=== PATIENT | male | born 1965 | race Caucasian/White ===

== ENCOUNTER 2019-11-07 23:40 | Inpatient (IN) | payer SELFPAY ==
[~2019-11-07] VITALS: Ht 165.1 cm; Wt 43.2 kg
--- NOTE | 2019-11-07 23:51 | PHYS DOC ---
Past Medical History Past Medical History: Kidney Stone Additional Past Medical Histor: pneumothorax Past Surgical History: No Surgical History Smoking Status: Current Every Day Smoker Alcohol Use: None Drug Use: None General Adult HPI: HPI: The history was obtained from the patient and EMS. Patient is a 54-year-old mal e with PMH on oxygen dependent COPD who presents with a chief complaint of shortness of breath. Patient states he has had progressive shortness of breath for the past couple of days. Notes a dry cough. States this feels similar to previous COPD exacerbations. Has been trying his inhaler at home with minimal relief. States he is from [place] and has not established with a prosthetic assistant or primary care doctor. States he moved here several weeks ago. Denies chest pain. States he last smoked 5 weeks ago. Notes he has been tested multiple times for coronavirus in the past 3 months and they have all been negative. Denies syncope. Denies BiPAP requirement at home. Denies any history of ventilator requirement. Denies recent antibiotics or steroids. No other complaints. Review of Systems: Review of Systems: Constitutional: Denies fever or chills. [] Eyes: Denies change in visual acuity. [] HENT: Denies nasal congestion or sore throat. [] Respiratory: Positive shortness of breath and cough Cardiovascular: Denies chest pain or edema. [] GI: Denies abdominal pain, nausea, vomiting, bloody stools or diarrhea. [] : Denies dysuria. [] Musculoskeletal: Denies back pain or joint pain. [] Integument: Denies rash. [] Neurologic: Denies headache, focal weakness or sensory changes. [] Endocrine: Denies polyuria or polydipsia. [] Lymphatic: Denies swollen glands. [] Psychiatric: Denies depression or anxiety. [] Heart Score: Risk Factors: Risk Factors: DM, Current or recent (<one month) smoker, HTN, HLP, family history of CAD, obesity. Risk Scores: Score 0 - 3: 2.5% MACE over next 6 weeks - Discharge Home Score 4 - 6: 20.3% MACE over next 6 weeks - Admit for Clinical Observation Score 7 - 10: 72.7% MACE over next 6 weeks - Early Invasive Strategies Allergies: Allergies: Allergies Coded Allergies Type Severity Reaction Last Updated Verified No Known Drug Allergies 09/23/14 No Physical Exam: PE: Constitutional: Well developed, well nourished, no acute distress, non-toxic appearance. [] HENT: Normocephalic, atraumatic, bilateral external ears normal, oropharynx moist, no oral exudates, nose normal. [] Eyes: PERRLA, EOMI, conjunctiva normal, no discharge. [] Neck: Normal range of motion, no tenderness, supple, no stridor. [] Cardiovascular:Heart rate regular rhythm, no murmur [] Lungs & Thorax: Bilateral expiratory wheezes noted in the bases. Tachypnea. Accessory muscle usage noted. 90% on room air. Abdomen: Bowel sounds normal, soft, no tenderness, no masses, no pulsatile masses. [] Skin: Warm, dry, no erythema, no rash. [] Back: No tenderness, no CVA tenderness. [] Extremities: No tenderness, no cyanosis, no clubbing, ROM intact, no edema. [] Neurologic: Alert and oriented X 3, normal motor function, normal sensory function, no focal deficits noted. [] Psychologic: Affect normal, judgement normal, mood normal. [] Current Patient Data: Labs: Laboratory Tests Test 11/08/19 00:12 White Blood Count 12.9 x10^3/uL Red Blood Count 4.21 x10^6/uL Hemoglobin 14.2 g/dL Hematocrit 42.1 % Mean Corpuscular Volume 100 fL Mean Corpuscular Hemoglobin 34 pg Mean Corpuscular Hemoglobin Concent 34 g/dL Red Cell Distribution Width 13.5 % Platelet Count 188 x10^3/uL Neutrophils (%) (Auto) 72 % Lymphocytes (%) (Auto) 13 % Monocytes (%) (Auto) 8 % Eosinophils (%) (Auto) 6 % Basophils (%) (Auto) 1 % Neutrophils # (Auto) 9.3 x10^3/uL Lymphocytes # (Auto) 1.6 x10^3/uL Monocytes # (Auto) 1.1 x10^3/uL Eosinophils # (Auto) 0.8 x10^3/uL Basophils # (Auto) 0.1 x10^3/uL Prothrombin Time 13.5 SEC Prothromb Time International Ratio 1.1 Sodium Level 143 mmol/L Potassium Level 4.0 mmol/L Chloride Level 109 mmol/L Carbon Dioxide Level 29 mmol/L Anion Gap 5 Blood Urea Nitrogen 11 mg/dL Creatinine 0.7 mg/dL Estimated GFR (Cockcroft-Gault) 117.1 BUN/Creatinine Ratio 16 Glucose Level 108 mg/dL Lactic Acid Level 1.2 mmol/L Calcium Level 8.9 mg/dL Total Bilirubin 0.2 mg/dL Aspartate Amino Transf (AST/SGOT) 15 U/L Alanine Aminotransferase (ALT/SGPT) 21 U/L Alkaline Phosphatase 101 U/L Troponin I Quantitative < 0.017 ng/mL HJ-Xow-G-Type Natriuretic Peptide 137 pg/mL Total Protein 6.8 g/dL Albumin 3.9 g/dL Albumin/Globulin Ratio 1.3 Current Medications Medications (Trade) Dose Ordered Sig/Gonsalo Route PRN Reason Start Time Stop Time Status Last Admin Dose Admin Albuterol/ Ipratropium (Duoneb) 9 ml 1X ONCE NEB 11/08/19 00:00 11/08/19 00:01 DC 11/08/19 00:18 Methylprednisolone Sodium Succinate (SOLU-Medrol 125MG VIAL) 125 mg 1X ONCE IV 11/08/19 00:00 11/08/19 00:01 DC 11/08/19 00:49 Sodium Chloride 1,000 ml @ 1,000 mls/hr 1X ONCE IV 11/08/19 00:00 11/08/19 00:59 DC 11/08/19 00:49 Vital Signs: Vital Signs Date Time Temp Pulse Resp B/P (MAP) Pulse Ox O2 Delivery O2 Flow Rate FiO2 11/07/19 23:40 98.5 104 24 140/79 (99) 5 Room Air 98.5 Vital Signs Date Time Temp Pulse Resp B/P (MAP) Pulse Ox O2 Delivery O2 Flow Rate FiO2 11/08/19 00:20 96 Room Air 11/07/19 23:40 98.5 104 24 140/79 (99) 98.5 EKG: EKG: EKG consistent with sinus tachycardia. Ventricular rate of 104 bpm. [place] normal. Bilateral atrial margin noted. No acute ST segment elevation appreciated. [] Radiology/Procedures: Radiology/Procedures: [facility] [address] [place] [address] IMAGING REPORT Signed PATIENT: JOSE PAULINO ACCOUNT: [id number] : 1965 LOCATION: ER AGE: 54 SEX: M EXAM STATUS: REG ER ORD. PHYSICIAN: GISSELL ELIZONDO DO REASON: SHORT OF AIR PROCEDURE: CHEST AP ONLY INDICATION: Reason: SHORT OF AIR / Spl. Instructions: / History: COMPARISON: September 2014 FINDINGS: Single view of chest obtained. Disorganized pulmonary markings bilaterally with lucency at lung apices. Postoperative changes left upper lung. Cardiac silhouette is not enlarged. There are some calcifications adjacent to the left humerus which could be from calcific tendinosis or old avulsion. IMPRESSION: * Hyperexpanded lungs with disorganized pulmonary markings which can be seen with causes such as emphysema. A well-defined focal infiltrate is not seen. Electronically signed by: Monik Hilario MD (11/08/2019 2:10 AM) [id number] DICTATED and SIGNED BY: MONIK HILARIO MD DATE: 11/08/19209 [] Course & Med Decision Making: Course & Med Decision Making Pertinent Labs and Imaging studies reviewed. (See chart for details) [] Patient is a 54-year-old male who presents with chief complaint of shortness of breath. Initial examination he does show retractions with wheezes bilaterally. He did refuse BiPAP initially requesting DuoNeb breathing treatments. These were administered and did show improvement of his breathing status. He still has some mild wheezing and tachypnea appreciated. No indication for BiPAP. Overall no indication for blood gas. Basic labs were obtained were grossly unremarkable. He was given IV Solu-Medrol. IV fluids administered. COVID testing obtained and pending. Antibiotics were deferred as the patient does not report any increase in sputum production. Chest x-ray nonfocal. I do feel he require hospitalization for COPD exacerbation. COVID-19 CRITERIA: The patient was evaluated during the global COVID-19 pandemic, and that diagnosis was suspected/considered upon their initial presentation. Their evaluation, treatment and testing was consistent with current guidelines for patients who present with complaints or symptoms that may be related to COVID-19. Dragon Disclaimer: Dragon Disclaimer: This electronic medical record was generated, in whole or in part, using a voice recognition dictation system. Departure Departure Impression: Primary Impression: COPD exacerbation Disposition: ADMITTED INPATIENT Condition: STABLE Referrals: NO PCP (PCP) Justicifation of Admission Dx: Justifications for Admission: Justification of Admission Dx: Yes Comments: COPD exacerbation GISSELL ELIZONDO DO Nov 07, 2019 23:51
[2019-11-08] MEDS ORDERED: IPRATRPIUM/ALBUTEROL 0.5/2.5MG 3 ML NEBU. NEB ONE
[2019-11-08] MEDS ORDERED: IV NORMAL SALINE 1000ML BAG 1,000 ML IV ONE
[2019-11-08] MEDS ORDERED: methylPREDNISolone SOD SUCC PF 125 MG/2 ML VIAL. IV ONE
[2019-11-08 00:26] LABS: BASO # 0.1 x10^3/uL (0.0-0.2); BASO % 1 % (0-3); EOS # 0.8 x10^3/uL (0.0-0.7); EOS % 6 % (0-3); HEMATOCRIT 42.1 % (39.0-53.0); HEMOGLOBIN 14.2 g/dL (13.0-17.5); LYMPH # 1.6 x10^3/uL (1.0-4.8); LYMPH % 13 % (24-48); MEAN CORPUSCULAR HEMOGLOBIN 34 pg (25-35); MEAN CORPUSCULAR HGB CONC 34 g/dL (31-37); MEAN CORPUSCULAR VOLUME 100 fL (79-100); MONO # 1.1 x10^3/uL (0.0-1.1); MONO % 8 % (0-9); NEUT # 9.3 x10^3/uL (1.8-7.7); NEUT % 72 % (31-73); PLATELET COUNT 188 x10^3/uL (140-400); RED BLOOD COUNT 4.21 x10^6/uL (4.30-5.70); RED CELL DISTRIBUTION WIDTH 13.5 % (11.5-14.5); WHITE BLOOD COUNT 12.9 x10^3/uL (4.0-11.0)
[2019-11-08 00:36] LABS: CALCIUM 8.9 mg/dL (8.5-10.1); CREATININE 0.7 mg/dL (0.7-1.3); GFR 117.1
[2019-11-08 00:38] LABS: PROTHROMBIN TIME PATIENT 13.5 SEC (11.7-14.0)
[2019-11-08 00:42] LABS: ALBUMIN 3.9 g/dL (3.4-5.0); ALBUMIN/GLOBULIN RATIO 1.3 (1.0-1.7); TOTAL BILIRUBIN 0.2 mg/dL (0.2-1.0); TOTAL PROTEIN 6.8 g/dL (6.4-8.2)
[2019-11-08] MEDS ORDERED: ONDANSETRON PF 4 MG/2 ML VIAL. IV PRN (01:45)
--- NOTE | 2019-11-08 02:13 | RAD ---
INDICATION: Reason: SHORT OF AIR / Spl. Instructions: / History: COMPARISON: September 2014 FINDINGS: Single view of chest obtained. Disorganized pulmonary markings bilaterally with lucency at lung apices. Postoperative changes left upper lung. Cardiac silhouette is not enlarged. There are some calcifications adjacent to the left humerus which could be from calcific tendinosis or old avulsion. IMPRESSION: * Hyperexpanded lungs with disorganized pulmonary markings which can be seen with causes such as emphysema. A well-defined focal infiltrate is not seen. Electronically signed by: Adrian Hilario MD (11/08/2019 2:10 AM) [id number]
[2019-11-08 03:59] VITALS: BP 136/81
--- NOTE | 2019-11-08 05:45 | EKG ---
[facility] [address] [place] [address] Test Date: 2019-11-08 Test Time: 00:04:18 Pat Name: JOSE PAULINO Department: Room: Gender: Location Man: : 1965 Requested By: GISSELL ELIZONDO Order Number: [id number] Reading MD: Measurements Intervals [place] Rate: 104 P: 77 WI: 138 QRS: 60 QRSD: 90 T: 56 QT: 354 QTc: 472 Interpretive Statements SINUS TACHYCARDIA BIATRIAL ENLARGEMENT ABNORMAL ECG RI6.02 No previous ECG available for comparison
[2019-11-08 07:00] VITALS: BP 136/81
--- NOTE | 2019-11-08 08:01 | PDOC1 ---
History and Physical Date of Admission Date of Admission DATE: 11/08/19 TIME: 08:01 Identification/Chief Complaint Chief Complaint Shortness of breath Source Source: Patient History of Present Illness History of Present Illness Mr Williamson is a 54-year-old male who smoked for 37 years with PMHx nephrolithiasis, spontaneous pneumothorax. COPD who comes to ED c/o shortness of breath. He has chronic exertional dyspnea since August. He has moved recently from [place] 3 days prior to ED presentation and wants to settle in [place] He quit tobacco 5 weeks ago. Patient states he has had progressive shortness of breath for the past couple of days. Notes a dry cough. States this feels similar to previous COPD exacerbations. Has been trying his inhaler at home with minimal relief. States he is from [place] and has not established with a reading instructor or primary care doctor. States he moved here several weeks ago. Denies chest pain. States he last smoked 5 weeks ago. Notes he has been tested multiple times for coronavirus in the past 3 months and they have all been negative. Denies syncope. Denies BiPAP requirement at home. Denies any history of ventilator requirement. Denies recent antibiotics or steroids. No other complaints. EKG consistent with sinus tachycardia. Ventricular rate of 104 bpm. [place] normal. Bilateral atrial margin noted. No acute ST segment elevation appreciated. CXR with severe bullous lung disease and emphysema and some prominent lung markings. BUN and creatinine 11 and 0.7. INR 1.1. White cell count 12.9. Tested for COVID 19 in ED and admitted for further care. Past Medical History Pulmonary: COPD Past Surgical History Past Surgical History: No pertinent history Family History Family History: High Cholestrol, Hypertension Social History Smoke: 1 pack per day ALCOHOL: none Drugs: None Current Problem List Problem List Problems Medical Problems: (1) COPD exacerbation Status: Acute Current Medications Current Medications Current Medications Albuterol/ Ipratropium (Duoneb) 9 ml 1X ONCE NEB Last administered on 11/08/19at 00:18; Start 11/08/19 at 00:00; Stop 11/08/19 at 00:01; Status DC Methylprednisolone Sodium Succinate (SOLU-Medrol 125MG VIAL) 125 mg 1X ONCE IV Last administered on 11/08/19at 00:49; Start 11/08/19 at 00:00; Stop 11/08/19 at 00:01; Status DC Sodium Chloride 1,000 ml @ 1,000 mls/hr 1X ONCE IV Last administered on 11/08/19at 00:49; Start 11/08/19 at 00:00; Stop 11/08/19 at 00:59; Status DC Ondansetron HCl (Zofran) 4 mg PRN Q8HRS PRN IV NAUSEA/VOMITING; Start 11/08/19 at 01:45; Stop 11/09/19 at 01:44 Allergies Allergies: Coded Allergies: No Known Drug Allergies (Unverified , 09/23/14) ROS General: YES: Fatigue, Malaise; No: Chills, Night Sweats, Appetite, Other PSYCHOLOGICAL ROS: YES: Anxiety; No: Behavioral Disorder, Concentration difficultie, Decreased libido, Depression, Disorientation, Hallucinations, Hostility, Irritablity, Memory difficulties, Mood Swings, Obsessive thoughts, Physical abuse, Sexual abuse, Sleep disturbances, Suicidal ideation, Other Eyes: No Blurry vision, No Decreased vision, No Double vision, No Dry eyes, No Excessive tearing, No Eye Pain, No Itchy Eyes, No Loss of vision, No Photophobia, No Scotomata, No Uses contacts, No Uses glasses, No Other HEENT: No: Heacaches, Visual Changes, Hearing change, Nasal congestion, Nasal discharge, Oral lesions, Sinus pain, Sore Throat, Epistaxis, Sneezing, Snoring, Tinnitus, Vertigo, Vocal changes, Other ALLERGY AND IMMUNOLOGY: YES: Itchy/Watery Eyes, Nasal Congestion, Post Nasal Drip; No: Hives, Insect Bite Sensitivity, Seasonal Allergies, Other Hematological and Lymphatic: No: Bleeding Problems, Blood Clots, Blood Transfusions, Brusing, Night Sweats, Pallor, Swollen Lymph Nodes, Other ENDOCRINE: No: Breast Changes, Galactorrhea, Hair Pattern Changes, Hot Flashes, Malaise/lethargy, Mood Swings, Palpitations, Polydipsia/polyuria, Skin Changes, Temperature Intolerance, Unexpected Weight Changes, Other Breast: No New/Changing Breast Lumps, No Nipple changes, No Nipple discharge, No Other Respiratory: YES: Cough, Shortness of breath, SOB with excertion; No: Hemoptysis, Orthopnea, Pleuritic Pain, Sputum Changes, Stridor, Tachypnea, Wheezing, Other Cardiovascular: No Chest Pain, No Palpitations, No Orthopnea, No Paroxysmal Noc. Dyspnea, No Edema, No Lt Headedness, No Other Gastrointestinal: No Nausea, No Vomiting, No Abdominal Pain, No Diarrhea, No Constipation, No Melena, No Hematochezia, No Other Genitourinary: No Dysuria, No Frequency, No Incontinence, No Hematuria, No Retention, No Discharge, No Urgency, No Pain, No Flank Pain, No Other, No , No , No , No , No , No , No Musculoskeletal: No Gait Disturbance, No Joint Pain, No Joint Stiffness, No Joint Swelling, No Muscle Pain, No Muscular Weakness, No Pain In:, No Swelling In:, No Other Neurological: No Behavorial Changes, No Bowel/Bladder ControlChng, No Confusion, No Dizziness, No Gait Disturbance, No Headaches, No Impaired Coord/balance, No Memory Loss, No Numbness/Tingling, No Seizures, No Speech Problems, No Tremors, No Visual Changes, No Weakness, No Other Skin: No Dry Skin, No Eczema, No Hair Changes, No Lumps, No Mole Changes, No Mottling, No Nail Changes, No Pruritus, No Rash, No Skin Lesion Changes, No Other, No Acne Physical Exam General: Alert, Oriented X3, Cooperative, mild distress HEENT: Atraumatic, PERRLA, EOMI, Mucous membr. moist/pink Lungs: Other (Wheezes) Heart: S1S2, RRR, no thrills, no rubs, no gallops, no murmurs Abdomen: Normal bowel sounds, Soft, No tenderness, No hepatosplenomegaly, No masses Rectal Exam: not examined Extremities: No clubbing, No cyanosis, No edema, Normal pulses, No t enderness/swelling Skin: No rashes, No breakdown, No significant lesion Neuro: Normal gait, Normal speech, Strength at 5/5 X4 ext, Normal tone, Sensation intact, Cranial nerves 3-12 NL, Reflexes 2+ Psych/Mental Status: Mental status NL, Mood NL Vitals Vitals Vital Signs Date Time Temp Pulse Resp B/P (MAP) Pulse Ox O2 Delivery O2 Flow Rate FiO2 11/08/19 03:59 97.0 105 25 136/81 (99) 96 Room Air 97.0 Labs Labs Laboratory Tests Test 11/08/19 00:12 White Blood Count 12.9 x10^3/uL (4.0-11.0) Red Blood Count 4.21 x10^6/uL (4.30-5.70) Hemoglobin 14.2 g/dL (13.0-17.5) Hematocrit 42.1 % (39.0-53.0) Mean Corpuscular Volume 100 fL (79-100) Mean Corpuscular Hemoglobin 34 pg (25-35) Mean Corpuscular Hemoglobin Concent 34 g/dL (31-37) Red Cell Distribution Width 13.5 % (11.5-14.5) Platelet Count 188 x10^3/uL (140-400) Neutrophils (%) (Auto) 72 % (31-73) Lymphocytes (%) (Auto) 13 % (24-48) Monocytes (%) (Auto) 8 % (0-9) Eosinophils (%) (Auto) 6 % (0-3) Basophils (%) (Auto) 1 % (0-3) Neutrophils # (Auto) 9.3 x10^3/uL (1.8-7.7) Lymphocytes # (Auto) 1.6 x10^3/uL (1.0-4.8) Monocytes # (Auto) 1.1 x10^3/uL (0.0-1.1) Eosinophils # (Auto) 0.8 x10^3/uL (0.0-0.7) Basophils # (Auto) 0.1 x10^3/uL (0.0-0.2) Prothrombin Time 13.5 SEC (11.7-14.0) Prothromb Time International Ratio 1.1 (0.8-1.1) Sodium Level 143 mmol/L (136-145) Potassium Level 4.0 mmol/L (3.5-5.1) Chloride Level 109 mmol/L (98-107) Carbon Dioxide Level 29 mmol/L (21-32) Anion Gap 5 (6-14) Blood Urea Nitrogen 11 mg/dL (8-26) Creatinine 0.7 mg/dL (0.7-1.3) Estimated GFR (Cockcroft-Gault) 117.1 BUN/Creatinine Ratio 16 (6-20) Glucose Level 108 mg/dL (70-99) Lactic Acid Level 1.2 mmol/L (0.4-2.0) Calcium Level 8.9 mg/dL (8.5-10.1) Total Bilirubin 0.2 mg/dL (0.2-1.0) Aspartate Amino Transf (AST/SGOT) 15 U/L (15-37) Alanine Aminotransferase (ALT/SGPT) 21 U/L (16-63) Alkaline Phosphatase 101 U/L (46-116) Troponin I Quantitative < 0.017 ng/mL (0.000-0.055) FM-Evu-W-Type Natriuretic Peptide 137 pg/mL (0-124) Total Protein 6.8 g/dL (6.4-8.2) Albumin 3.9 g/dL (3.4-5.0) Albumin/Globulin Ratio 1.3 (1.0-1.7) Laboratory Tests Test 11/08/19 00:12 White Blood Count 12.9 x10^3/uL (4.0-11.0) Red Blood Count 4.21 x10^6/uL (4.30-5.70) Hemoglobin 14.2 g/dL (13.0-17.5) Hematocrit 42.1 % (39.0-53.0) Mean Corpuscular Volume 100 fL (79-100) Mean Corpuscular Hemoglobin 34 pg (25-35) Mean Corpuscular Hemoglobin Concent 34 g/dL (31-37) Red Cell Distribution Width 13.5 % (11.5-14.5) Platelet Count 188 x10^3/uL (140-400) Neutrophils (%) (Auto) 72 % (31-73) Lymphocytes (%) (Auto) 13 % (24-48) Monocytes (%) (Auto) 8 % (0-9) Eosinophils (%) (Auto) 6 % (0-3) Basophils (%) (Auto) 1 % (0-3) Neutrophils # (Auto) 9.3 x10^3/uL (1.8-7.7) Lymphocytes # (Auto) 1.6 x10^3/uL (1.0-4.8) Monocytes # (Auto) 1.1 x10^3/uL (0.0-1.1) Eosinophils # (Auto) 0.8 x10^3/uL (0.0-0.7) Basophils # (Auto) 0.1 x10^3/uL (0.0-0.2) Prothrombin Time 13.5 SEC (11.7-14.0) Prothromb Time International Ratio 1.1 (0.8-1.1) Sodium Level 143 mmol/L (136-145) Potassium Level 4.0 mmol/L (3.5-5.1) Chloride Level 109 mmol/L (98-107) Carbon Dioxide Level 29 mmol/L (21-32) Anion Gap 5 (6-14) Blood Urea Nitrogen 11 mg/dL (8-26) Creatinine 0.7 mg/dL (0.7-1.3) Estimated GFR (Cockcroft-Gault) 117.1 BUN/Creatinine Ratio 16 (6-20) Glucose Level 108 mg/dL (70-99) Lactic Acid Level 1.2 mmol/L (0.4-2.0) Calcium Level 8.9 mg/dL (8.5-10.1) Total Bilirubin 0.2 mg/dL (0.2-1.0) Aspartate Amino Transf (AST/SGOT) 15 U/L (15-37) Alanine Aminotransferase (ALT/SGPT) 21 U/L (16-63) Alkaline Phosphatase 101 U/L (46-116) Troponin I Quantitative < 0.017 ng/mL (0.000-0.055) XA-Pas-A-Type Natriuretic Peptide 137 pg/mL (0-124) Total Protein 6.8 g/dL (6.4-8.2) Albumin 3.9 g/dL (3.4-5.0) Albumin/Globulin Ratio 1.3 (1.0-1.7) Images Images CXR: Disorganized pulmonary markings bilaterally with lucency at lung apices. Postoperative changes left upper lung. Cardiac silhouette is not enlarged. There are some calcifications adjacent to the left humerus which could be from calcific tendinosis or old avulsion. IMPRESSION: * Hyperexpanded lungs with disorganized pulmonary markings which can be seen with causes such as emphysema. A well-defined focal infiltrate is not seen. VTE Prophylaxis Ordered VTE Prophylaxis Devices: No VTE Pharmacological Prophylaxi: Yes Assessment/Plan Assessment/Plan A/P: Shortness of breath - COPD exacerbation, inhalers, steroids improving Likely end-stage chronic obstructive pulmonary disease - will have outpatient pulm f/u. A noncontrast CT chest to assess for bullous lung disease once COVID is ruled out and recommend alpha-1 antitrypsin level as an outpatient. Abnormal chest x-ray with suspected bullous lung disease and severe emphysema - no clinical pneumonia. Needs PFTs as an outpatient. Leukocytosis - likely from COPD exacerbation Anxiety - likely related to COPD. try buspar FEN - General diet PPX - lovenox FULL CODE Dispo - inpatient await pulm evaluation, will r/o COVID19, 6 minute walk and likely home Justifications for Admission Other Justification ANNE HOOVER MD Nov 08, 2019 08:01
[2019-11-08] MEDS ORDERED: FLUTICASONE/VILANTEROL 200/25 INHALER. INH SCH (09:00)
[2019-11-08 11:00] VITALS: BP 134/74
--- NOTE | 2019-11-08 12:20 | CONS ---
DATE OF CONSULTATION: PULMONARY CONSULTATION ATTENDING PHYSICIAN: Dr. La. REASON FOR CONSULTATION: Dyspnea. HISTORY OF PRESENT ILLNESS: The patient is a 54-year-old male who smoked for 37 years. He has chronic exertional dyspnea since August. He has moved recently from [place] and wants to settle in [place] He quit tobacco 5 weeks ago. The patient does not have any brazer induction. He denies any cough, fever or chills. He has some weight loss. The patient had multiple times been tested for COVID and was reportedly negative. I have reviewed the patient's chest x-ray and it showed evidence of severe bullous lung disease and emphysema and some prominent lung markings. His review of chemistry reveals an elevated bicarbonate 29, suggesting he may have hypercapnia. PAST MEDICAL HISTORY: Significant for renal stones and history of pneumothorax. History of suspected severe emphysema. PAST SURGICAL HISTORY: None. SOCIAL HISTORY: Smoked for 37 years. Quit 5 weeks ago. ALLERGIES: None. MEDICATIONS: Reviewed as listed in the MRAD. REVIEW OF SYSTEMS: Ten-point system obtained as discussed in my history of present illness. PHYSICAL EXAMINATION: VITAL SIGNS: Reviewed. Pulse ox 96% on room air. HEENT: Visual exam done due to COVID-19 pandemia. GENERAL: He is in no obvious respiratory distress. He has a very emphysematous chest wall. EXTREMITIES: With no pitting edema. LABORATORY DATA: Reviewed. BUN and creatinine 11 and 0.7. INR 1.1. White cell count 12.9. IMPRESSION: 1. Chronic exertional dyspnea secondary to suspected end-stage chronic obstructive pulmonary disease. 2. Abnormal chest x-ray with suspected bullous lung disease and severe emphysema. RECOMMENDATIONS: 1. Clinically, low suspicion for COVID. 2. Would recommend doing a noncontrast CT chest to assess for bullous lung disease once COVID is ruled out. 3. We would also recommend alpha-1 antitrypsin level as an outpatient. 4. Bronchodilators. 5. PFTs as an outpatient. 6. He could be discharged. He would benefit from 6-minute walk test to assess further need for oxygen. ELBA MORA MD DR: JB/balbina JOB#: [id number] / [id number]
[2019-11-08 15:00] VITALS: BP 132/76
[2019-11-08] MEDS ORDERED: MONT10TA49 PO (16:01)
[2019-11-08] MEDS ORDERED: IPRA3AMP29 NEB (16:01)
[2019-11-08] MEDS ORDERED: BUSP5TAB PO (16:01)
[2019-11-08] MEDS ORDERED: BUDE0.5A3 NEB (16:01)
[2019-11-08] MEDS ORDERED: PRED20TA PO (16:01)
--- NOTE | 2019-11-08 16:05 | NUR ---
SW following. Spoke with RN and reviewed chart. SW referred for functional decline. SW attempted to call in and talk with pt but there was no answer. Pt COVID pending and on room air. Pt has discharge orders to home self-care. No further SW needs identified.
--- NOTE | 2019-11-08 17:10 | NUR ---
Pt discharged to home with mother. Discharge instructions reviewed. Questions answered.
--- NOTE | 2019-11-10 17:35 | PDOC3 ---
Discharge Summary Visit Information Date of Admission: Nov 08, 2019 Date of Discharge: Nov 08, 2019 Admitting Diagnosis: COPD with exacerbation Final Diagnosis Problems Medical Problems: (1) COPD exacerbation Status: Acute Brief Hospital Course Allergies Allergies Coded Allergies Type Severity Reaction Last Updated Verified No Known Drug Allergies 09/23/14 No Brief Hospital Course Mr Williamson is a 54-year-old male who smoked for 37 years with PMHx nephrolithiasis, spontaneous pneumothorax. COPD who comes to ED c/o shortness of breath. He has chronic exertional dyspnea since August. He has moved recently from [place] 3 days prior to ED presentation and wants to settle in [place] He quit tobacco 5 weeks ago. Patient states he has had progressive shortness of breath for the past couple of days. Notes a dry cough. States this feels similar to previous COPD exacerbations. Has been trying his inhaler at home with minimal relief. States he is from [place] and has not established with a senior sales compensation analyst or primary care doctor. States he moved here several weeks ago. Denies chest pain. States he last smoked 5 weeks ago. Notes he has been tested multiple times for coronavirus in the past 3 months and they have all been negative. Denies syncope. Denies BiPAP requirement at home. Denies any history of ventilator requirement. Denies recent antibiotics or steroids. No other complaints. EKG consistent with sinus tachycardia. Ventricular rate of 104 bpm. [place] normal. Bilateral atrial margin noted. No acute ST segment elevation appreciated. CXR with severe bullous lung disease and emphysema and some prominent lung markings. BUN and creatinine 11 and 0.7. INR 1.1. White cell count 12.9. Tested for COVID 19 in ED and admitted for further care. His COVID 19 returned negative and after 2 sessions of nebulizers and IV steroids he transitioned to PO prednisone, singulair, and nebulizer kit and pulmicort on discharge with outpatient pulm f/u. Consults: Pulm Problem list: Shortness of breath - COPD exacerbation, inhalers, steroids improving Likely end-stage chronic obstructive pulmonary disease - will have outpatient pulm f/u. A noncontrast CT chest to assess for bullous lung disease once COVID is ruled out and recommend alpha-1 antitrypsin level as an outpatient. Abnormal chest x-ray with suspected bullous lung disease and severe emphysema - no clinical pneumonia. Needs PFTs as an outpatient. Leukocytosis - likely from COPD exacerbation Anxiety - likely related to COPD. try buspar NEGATIVE COVID19, no O2 needs on 6 minute walk Discharge Information Condition at Discharge: Improved Follow Up: Weeks (1) Disposition/Orders: D/C to Home Scheduled Budesonide (Pulmicort) 0.5 Mg/2 Ml Ampul.neb, 1 VIAL NEB BID for COPD for 30 Days, #60 Ref 3 Prescribed by: ANNE HOOVER MD on 11/08/19 1601 Ipratropium/Albuterol Sulfate (Duoneb 0.5-3(2.5) Mg/3 Ml) 3 Ml Ampul.neb, 3 ML NEB QID for COPD for 30 Days, #120 Ref 5 Prescribed by: ANNE HOOVER MD on 11/08/19 1601 Montelukast Sodium (Montelukast Sodium Tablet ) 10 Mg Tablet, 10 MG PO HS for FOR ASTHMA for 90 Days, #90 Ref 3 Prescribed by: ANNE HOOVER MD on 11/08/19 1601 Prednisone (Prednisone) 20 Mg Tablet, 1 TAB PO DAILY for COPD for 5 Days, #5 Prescribed by: ANNE HOOVER MD on 11/08/19 1601 Scheduled PRN Buspirone Hcl (Buspirone Hcl) 5 Mg Tablet, 1 TAB PO PRN TID PRN for ANXIETY / AGITATION for 10 Days, #30 Ref 5 Prescribed by: ANNE HOOVER MD on 11/08/19 1601 Justicifation of Admission Dx: Justifications for Admission: Justification of Admission Dx: Yes ANNE HOOVER MD Nov 10, 2019 17:35
== END 2019-11-08 17:15 | disposition home or self-care (01) | DRG 192 ==
LOC: ER 23:40 → 6 SOUTH 11-08 01:50
PROVIDERS: ADMIT Internal Medicine; ATTEND Internal Medicine
DX: J44.1 Chronic obstructive pulmonary disease with (acute) exacerbation (principal); Z20.828 Contact with and (suspected) exposure to other viral communicable diseases; Z87.442 Personal history of urinary calculi; Z87.891 Personal history of nicotine dependence; Z99.81 Dependence on supplemental oxygen
CPT/HCPCS: 36415; 71045; 80053; 83605; 83880; 84484; 85025; 85610; 87040; 87205; 93005; 94640; 96361; 96374; J2930; J7030; 99285-25; G0378; U0003-CS

== ENCOUNTER 2019-12-02 23:26 | Observation (INO) | payer SELFPAY ==
[~2019-12-02] VITALS: Ht 165.1 cm; Wt 45.0 kg
[~2019-12-02 23:26] MED LIST: BUDE0.5A3 NEB; BUSP5TAB PO; IPRA3AMP29 NEB; MONT10TA49 PO; PRED20TA PO
--- NOTE | 2019-12-03 00:11 | PHYS DOC ---
Past Medical History Past Medical History: COPD, Kidney Stone Additional Past Medical Histor: pneumothorax Past Surgical History: No Surgical History, Other Additional Past Surgical Histo: "LEFT LUNG COLLAPSED" Smoking Status: Former Smoker Alcohol Use: Rarely Drug Use: None General Adult EDM: Chief Complaint: SHORTNESS OF BREATH HPI: HPI: Patient is a 54 year old male past medical history of COPD presents with a chief complaint of shortness of breath. Patient states he has been short of breath for the last several months but significantly worse tonight. Patient states he has a chronic cough with occasional sputum production. He denies any fevers he denies any chest pain. Patient states he used breathing treatments at home with no relief. Review of Systems: Review of Systems: Constitutional: Denies fever or chills. [] Eyes: Denies change in visual acuity. [] HENT: Denies nasal congestion or sore throat. [] Respiratory: Positive cough positive shortness of breath Cardiovascular: Denies chest pain or edema. [] GI: Denies abdominal pain, nausea, vomiting, bloody stools or diarrhea. [] : Denies dysuria. [] Musculoskeletal: Denies back pain or joint pain. [] Integument: Denies rash. [] Neurologic: Denies headache, focal weakness or sensory changes. [] Endocrine: Denies polyuria or polydipsia. [] Lymphatic: Denies swollen glands. [] Psychiatric: Denies depression or anxiety. [] Heart Score: Risk Factors: Risk Factors: DM, Current or recent (<one month) smoker, HTN, HLP, family history of CAD, obesity. Risk Scores: Score 0 - 3: 2.5% MACE over next 6 weeks - Discharge Home Score 4 - 6: 20.3% MACE over next 6 weeks - Admit for Clinical Observation Score 7 - 10: 72.7% MACE over next 6 weeks - Early Invasive Strategies Current Medications: Current Medications Medications (Trade) Dose Ordered Sig/Gonsalo Start Time Stop Time Status Last Admin Dose Admin Albuterol/ Ipratropium (Duoneb) 3 ml 1X ONCE 12/03/19 00:15 12/03/19 00:16 UNV Methylprednisolone Sodium Succinate (SOLU-Medrol 125MG VIAL) 125 mg 1X ONCE 12/03/19 00:15 12/03/19 00:16 UNV Allergies: Allergies: Allergies Coded Allergies Type Severity Reaction Last Updated Verified No Known Drug Allergies 7/20/15 No Physical Exam: PE: Constitutional: Well developed, well nourished, no acute distress, non-toxic appearance. [] HENT: Normocephalic, atraumatic, bilateral external ears normal, oropharynx moist, no oral exudates, nose normal. [] Eyes: PERRLA, EOMI, conjunctiva normal, no discharge. [] Neck: Normal range of motion, no tenderness, supple, no stridor. [] Cardiovascular: Tachycardia Lungs & Thorax: Decreased breath sounds bilateral, patient tachypneic Abdomen: Bowel sounds normal, soft, no tenderness, no masses, no pulsatile masses. [] Skin: Warm, dry, no erythema, no rash. [] Back: No tenderness, no CVA tenderness. [] Extremities: No tenderness, no cyanosis, no clubbing, ROM intact, no edema. [] Neurologic: Alert and oriented X 3, normal motor function, normal sensory function, no focal deficits noted. [] Psychologic: Affect normal, judgement normal, mood normal. [] Current Patient Data: Vital Signs: Vital Signs Date Time Temp Pulse Resp B/P (MAP) Pulse Ox O2 Delivery O2 Flow Rate FiO2 12/02/19 23:36 97.8 101 26 146/84 (104) 100 Nasal Cannula 3.0 97.8 EKG: EKG: EKG performed at 2335 heart rate [address] elevation no ST depression no acute [place] [] Radiology/Procedures: Radiology/Procedures: [] Impression: Hyperaerated lung foley. Linear density at the mid right lung field which may reflect atelectasis or scarring. Course & Med Decision Making: Course & Med Decision Making Pertinent Labs and Imaging studies reviewed. (See chart for details) I do not suspect covid. Patient with long standing history of COPD. Chronic unchanged cough. Denies fever. []ABG pH 7.4 pCO 42.2 pO2 67.2 Patient treated with solumedrol CERAMIC ENGINEER via EMS Treated in ER with duoneb. Patient declined bipap. Patient admitted to hospitalist. Emy Disclaimer: Emy Disclaimer: This electronic medical record was generated, in whole or in part, using a voice recognition dictation system. Departure Departure Impression: Primary Impression: COPD exacerbation Disposition: ADMITTED INPATIENT Condition: STABLE Referrals: NO PCP (PCP) Justicifation of Admission Dx: Justifications for Admission: Justification of Admission Dx: Yes MICHELLE BLAS I DO Dec 03, 2019 00:11
[2019-12-03 00:14] LABS: BASO # 0.1 x10^3/uL (0.0-0.2); BASO % 1 % (0-3); EOS # 0.4 x10^3/uL (0.0-0.7); EOS % 5 % (0-3); HEMATOCRIT 41.4 % (39.0-53.0); HEMOGLOBIN 14.3 g/dL (13.0-17.5); LYMPH # 2.4 x10^3/uL (1.0-4.8); LYMPH % 28 % (24-48); MEAN CORPUSCULAR HEMOGLOBIN 35 pg (25-35); MEAN CORPUSCULAR HGB CONC 35 g/dL (31-37); MEAN CORPUSCULAR VOLUME 100 fL (79-100); MONO # 0.9 x10^3/uL (0.0-1.1); MONO % 10 % (0-9); NEUT # 4.9 x10^3/uL (1.8-7.7); NEUT % 56 % (31-73); PLATELET COUNT 196 x10^3/uL (140-400); RED BLOOD COUNT 4.14 x10^6/uL (4.30-5.70); RED CELL DISTRIBUTION WIDTH 13.7 % (11.5-14.5); WHITE BLOOD COUNT 8.7 x10^3/uL (4.0-11.0)
[2019-12-03 00:21] LABS: CALCIUM 8.9 mg/dL (8.5-10.1); CREATININE 1.1 mg/dL (0.7-1.3); GFR 69.5; POTASSIUM 4.2 mmol/L (3.5-5.1)
[2019-12-03 00:27] LABS: ALBUMIN/GLOBULIN RATIO 1.5 (1.0-1.7); TOTAL BILIRUBIN 0.1 mg/dL (0.2-1.0); TOTAL PROTEIN 6.6 g/dL (6.4-8.2)
[2019-12-03] MEDS ORDERED: IPRATRPIUM/ALBUTEROL 0.5/2.5MG 3 ML NEBU. NEB ONE (00:30)
[2019-12-03] MEDS ORDERED: methylPREDNISolone SOD SUCC PF 125 MG/2 ML VIAL. IV ONE (00:30)
[2019-12-03 00:39] LABS: BASE EXCESS ABG 1 mmol/L (-3-3); HCO3 ABG 26 mmol/L (21-28); PCO2 ABG 42 mmHg (35-46); PO2 ABG 67 mmHg (75-108); SAT O2 ABG 93 % (92-99)
[2019-12-03 00:51] LABS: FIO2 ABG 21
--- NOTE | 2019-12-03 00:54 | RAD ---
Chest AP portable at 12:19 AM: Reason for examination: Short of breath. The heart size is normal. Mediastinum is unremarkable. Lung foley are hyperaerated with apical lucency and show some linear density in the mid right lung field which may reflect atelectasis or scarring. No acute bony abnormalities are seen. Impression: Hyperaerated lung foley. Linear density at the mid right lung field which may reflect atelectasis or scarring. Electronically signed by: Lacy Barry MD (12/03/2019 12:51 AM) [facility]
[2019-12-03] MEDS ORDERED: MORPHINE SULFATE 2 MG/ML VIAL. IV PRN (01:00)
[2019-12-03] MEDS ORDERED: ONDANSETRON PF 4 MG/2 ML VIAL. IV PRN ×2 (01:00→07:45)
[2019-12-03 04:57] VITALS: BP 119/76
[2019-12-03 07:00] VITALS: BP 124/80
[2019-12-03] MEDS ORDERED: busPIRone 5 MG TABLET. PO PRN (07:45)
[2019-12-03] MEDS: IPRATRPIUM/ALBUTEROL 0.5/2.5MG 3 ML NEBU. NEB SCH ×2 (07:47→11:49)
--- NOTE | 2019-12-03 07:47 | PDOC1 ---
History and Physical Date of Admission Date of Admission DATE: 12/03/19 TIME: 07:43 Identification/Chief Complaint Chief Complaint Shortness of breath Source Source: Patient History of Present Illness History of Present Illness Mr Williamson is a 54-year-old male who smoked for 37 years with PMHx nephrolithiasis, spontaneous pneumothorax. COPD who comes to ED c/o shortness of breath. He has chronic exertional dyspnea since August. He has moved recently from [place] 1 month ago and has settled in [place] He quit tobacco 5 weeks ago. Patient states he has had progressive shortness of breath for the past couple of days. Notes a dry cough. States this feels similar to previous COPD exacerbations. Has been trying his inhaler at home with minimal relief. States he is from [place] and has not established with a pellet machine operator or primary care doctor. States he moved here several weeks ago. Denies chest pain. States he last smoked 8 weeks ago. Notes he has been tested multiple times for coronavi yue in the past 3 months and they have all been negative. Denies syncope. Denies BiPAP requirement at home. Denies any history of ventilator requirement. Denies recent antibiotics or steroids. No other complaints. EKG consistent with sinus tachycardia. Ventricular rate of 104 bpm. [place] normal. Bilateral atrial margin noted. No acute ST segment elevation appreciated. Admitted 11/07-11/09 for similar. His COVID 19 returned negative and after 2 sessions of nebulizers and IV steroids he transitioned to PO prednisone, singulair, and nebulizer kit and pulmicort on discharge with outpatient pulm f/u. After steroids and aggressive nebulizers already feeling a bit improved. Past Medical History Pulmonary: COPD Past Surgical History Past Surgical History: No pertinent history Family History Family History: High Cholestrol, Hypertension Social History Smoke: Quit ALCOHOL: none Drugs: None Current Problem List Problem List Problems Medical Problems: (1) COPD exacerbation Status: Acute Current Medications Current Medications Current Medications Methylprednisolone Sodium Succinate (SOLU-Medrol 125MG VIAL) 125 mg 1X ONCE IV ; Start 12/03/19 at 00:30; Stop 12/03/19 at 00:31; Status DC Albuterol/ Ipratropium (Duoneb) 3 ml 1X ONCE NEB Last administered on 12/03/19at 00:30; Start 12/03/19 at 00:30; Stop 12/03/19 at 00:31; Status DC Ondansetron HCl (Zofran) 4 mg PRN Q8HRS PRN IV NAUSEA/VOMITING 1ST CHOICE; Start 12/03/19 at 01:00; Stop 12/04/19 at 00:59 Morphine Sulfate (Morphine Sulfate) 2 mg PRN Q2HR PRN IV SEVERE PAIN 7-10; Start 12/03/19 at 01:00; Stop 12/04/19 at 00:59 Albuterol/ Ipratropium (Duoneb) 3 ml RTQID NEB ; Start 12/03/19 at 08:00; Stop 12/04/19 at 07:59 Active Scripts Active Buspirone Hcl 5 Mg Tablet 1 Tab PO PRN TID PRN 10 Days Montelukast Sodium Tablet (Montelukast Sodium) 10 Mg Tablet 10 Mg PO HS 90 Days Duoneb 0.5-3(2.5) Mg/3 Ml (Albuterol/Ipratropium) 3 Ml Ampul.neb 3 Ml NEB QID 30 Days Allergies Allergies: Coded Allergies: No Known Drug Allergies (Unverified , 09/23/14) ROS General: YES: Fatigue, Malaise; No: Chills, Night Sweats, Appetite, Other PSYCHOLOGICAL ROS: No: Anxiety, Behavioral Disorder, Concentration difficultie, Decreased libido, Depression, Disorientation, Hallucinations, Hostility, Irritablity, Memory difficulties, Mood Swings, Obsessive thoughts, Physical abuse, Sexual abuse, Sleep disturbances, Suicidal ideation, Other Eyes: No Blurry vision, No Decreased vision, No Double vision, No Dry eyes, No Excessive tearing, No Eye Pain, No Itchy Eyes, No Loss of vision, No Photophobia, No Scotomata, No Uses contacts, No Uses glasses, No Other HEENT: No: Heacaches, Visual Changes, Hearing change, Nasal congestion, Nasal discharge, Oral lesions, Sinus pain, Sore Throat, Epistaxis, Sneezing, Snoring, Tinnitus, Vertigo, Vocal changes, Other ALLERGY AND IMMUNOLOGY: No: Hives, Insect Bite Sensitivity, Itchy/Watery Eyes, Nasal Congestion, Post Nasal Drip, Seasonal Allergies, Other Hematological and Lymphatic: No: Bleeding Problems, Blood Clots, Blood Transfusions, Brusing, Night Sweats, Pallor, Swollen Lymph Nodes, Other ENDOCRINE: No: Breast Changes, Galactorrhea, Hair Pattern Changes, Hot Flashes, Malaise/lethargy, Mood Swings, Palpitations, Polydipsia/polyuria, Skin Changes, Temperature Intolerance, Unexpected Weight Changes, Other Breast: No New/Changing Breast Lumps, No Nipple changes, No Nipple discharge, No Other Respiratory: YES: Cough, Shortness of breath, SOB with excertion; No: Hemoptysis, Orthopnea, Pleuritic Pain, Sputum Changes, Stridor, Tachypnea, Wheezing, Other Cardiovascular: No Chest Pain, No Palpitations, No Orthopnea, No Paroxysmal Noc. Dyspnea, No Edema, No Lt Headedness, No Other Gastrointestinal: No Nausea, No Vomiting, No Abdominal Pain, No Diarrhea, No Constipation, No Melena, No Hematochezia, No Other Genitourinary: No Dysuria, No Frequency, No Incontinence, No Hematuria, No Retention, No Discharge, No Urgency, No Pain, No Flank Pain, No Other, No , No , No , No , No , No , No Musculoskeletal: No Gait Disturbance, No Joint Pain, No Joint Stiffness, No Joint Swelling, No Muscle Pain, No Muscular Weakness, No Pain In:, No Swelling In:, No Other Neurological: No Behavorial Changes, No Bowel/Bladder ControlChng, No Confusion, No Dizziness, No Gait Disturbance, No Headaches, No Impaired Coord/balance, No Memory Loss, No Numbness/Tingling, No Seizures, No Speech Problems, No Tremors, No Visual Changes, No Weakness, No Other Skin: No Dry Skin, No Eczema, No Hair Changes, No Lumps, No Mole Changes, No Mottling, No Nail Changes, No Pruritus, No Rash, No Skin Lesion Changes, No Other, No Acne Physical Exam General: Alert, Oriented X3, Cooperative, No acute distress HEENT: Atraumatic, PERRLA, EOMI, Mucous membr. moist/pink Lungs: Clear to auscultation, Normal air movement Heart: S1S2, RRR, no thrills, no rubs, no gallops, no murmurs Abdomen: Normal bowel sounds, Soft, No tenderness, No hepatosplenomegaly, No masses Rectal Exam: not examined Extremities: No clubbing, No cyanosis, No edema, Normal pulses, No tenderness/swelling Skin: No rashes, No breakdown, No significant lesion Neuro: Normal gait, Normal speech, Strength at 5/5 X4 ext, Normal tone, Sensation intact, Cranial nerves 3-12 NL, Reflexes 2+ Psych/Mental Status: Mental status NL, Mood NL Vitals Vitals Vital Signs Date Time Temp Pulse Resp B/P (MAP) Pulse Ox O2 Delivery O2 Flow Rate FiO2 12/03/19 07:00 97.8 90 18 124/80 (95) 98 Room Air 97.8 12/02/19 23:36 3.0 Labs Labs Laboratory Tests Test 12/03/19 00:01 12/03/19 00:05 12/03/19 06:50 White Blood Count 8.7 x10^3/uL (4.0-11.0) Red Blood Count 4.14 x10^6/uL (4.30-5.70) Hemoglobin 14.3 g/dL (13.0-17.5) Hematocrit 41.4 % (39.0-53.0) Mean Corpuscular Volume 100 fL (79-100) Mean Corpuscular Hemoglobin 35 pg (25-35) Mean Corpuscular Hemoglobin Concent 35 g/dL (31-37) Red Cell Distribution Width 13.7 % (11.5-14.5) Platelet Count 196 x10^3/uL (140-400) Neutrophils (%) (Auto) 56 % (31-73) Lymphocytes (%) (Auto) 28 % (24-48) Monocytes (%) (Auto) 10 % (0-9) Eosinophils (%) (Auto) 5 % (0-3) Basophils (%) (Auto) 1 % (0-3) Neutrophils # (Auto) 4.9 x10^3/uL (1.8-7.7) Lymphocytes # (Auto) 2.4 x10^3/uL (1.0-4.8) Monocytes # (Auto) 0.9 x10^3/uL (0.0-1.1) Eosinophils # (Auto) 0.4 x10^3/uL (0.0-0.7) Basophils # (Auto) 0.1 x10^3/uL (0.0-0.2) Sodium Level 142 mmol/L (136-145) Potassium Level 4.2 mmol/L (3.5-5.1) Chloride Level 106 mmol/L (98-107) Carbon Dioxide Level 32 mmol/L (21-32) Anion Gap 4 (6-14) Blood Urea Nitrogen 15 mg/dL (8-26) Creatinine 1.1 mg/dL (0.7-1.3) Estimated GFR (Cockcroft-Gault) 69.5 BUN/Creatinine Ratio 14 (6-20) Glucose Level 95 mg/dL (70-99) Calcium Level 8.9 mg/dL (8.5-10.1) Total Bilirubin 0.1 mg/dL (0.2-1.0) Aspartate Amino Transf (AST/SGOT) 12 U/L (15-37) Alanine Aminotransferase (ALT/SGPT) 19 U/L (16-63) Alkaline Phosphatase 105 U/L (46-116) Troponin I Quantitative < 0.017 ng/mL (0.000-0.055) < 0.017 ng/mL (0.000-0.055) Total Protein 6.6 g/dL (6.4-8.2) Albumin 4.0 g/dL (3.4-5.0) Albumin/Globulin Ratio 1.5 (1.0-1.7) O2 Saturation 93 % (92-99) Arterial Blood pH 7.40 (7.35-7.45) Arterial Blood pCO2 at Patient Temp 42 mmHg (35-46) Arterial Blood pO2 at Patient Temp 67 mmHg (75-108) Arterial Blood HCO3 26 mmol/L (21-28) Arterial Blood Base Excess 1 mmol/L (-3-3) FiO2 21 Laboratory Tests Test 12/03/19 00:01 12/03/19 00:05 12/03/19 06:50 White Blood Count 8.7 x10^3/uL (4.0-11.0) Red Blood Count 4.14 x10^6/uL (4.30-5.70) Hemoglobin 14.3 g/dL (13.0-17.5) Hematocrit 41.4 % (39.0-53.0) Mean Corpuscular Volume 100 fL (79-100) Mean Corpuscular Hemoglobin 35 pg (25-35) Mean Corpuscular Hemoglobin Concent 35 g/dL (31-37) Red Cell Distribution Width 13.7 % (11.5-14.5) Platelet Count 196 x10^3/uL (140-400) Neutrophils (%) (Auto) 56 % (31-73) Lymphocytes (%) (Auto) 28 % (24-48) Monocytes (%) (Auto) 10 % (0-9) Eosinophils (%) (Auto) 5 % (0-3) Basophils (%) (Auto) 1 % (0-3) Neutrophils # (Auto) 4.9 x10^3/uL (1.8-7.7) Lymphocytes # (Auto) 2.4 x10^3/uL (1.0-4.8) Monocytes # (Auto) 0.9 x10^3/uL (0.0-1.1) Eosinophils # (Auto) 0.4 x10^3/uL (0.0-0.7) Basophils # (Auto) 0.1 x10^3/uL (0.0-0.2) Sodium Level 142 mmol/L (136-145) Potassium Level 4.2 mmol/L (3.5-5.1) Chloride Level 106 mmol/L (98-107) Carbon Dioxide Level 32 mmol/L (21-32) Anion Gap 4 (6-14) Blood Urea Nitrogen 15 mg/dL (8-26) Creatinine 1.1 mg/dL (0.7-1.3) Estimated GFR (Cockcroft-Gault) 69.5 BUN/Creatinine Ratio 14 (6-20) Glucose Level 95 mg/dL (70-99) Calcium Level 8.9 mg/dL (8.5-10.1) Total Bilirubin 0.1 mg/dL (0.2-1.0) Aspartate Amino Transf (AST/SGOT) 12 U/L (15-37) Alanine Aminotransferase (ALT/SGPT) 19 U/L (16-63) Alkaline Phosphatase 105 U/L (46-116) Troponin I Quantitative < 0.017 ng/mL (0.000-0.055) < 0.017 ng/mL (0.000-0.055) Total Protein 6.6 g/dL (6.4-8.2) Albumin 4.0 g/dL (3.4-5.0) Albumin/Globulin Ratio 1.5 (1.0-1.7) O2 Saturation 93 % (92-99) Arterial Blood pH 7.40 (7.35-7.45) Arterial Blood pCO2 at Patient Temp 42 mmHg (35-46) Arterial Blood pO2 at Patient Temp 67 mmHg (75-108) Arterial Blood HCO3 26 mmol/L (21-28) Arterial Blood Base Excess 1 mmol/L (-3-3) FiO2 21 Images Images CXR: The heart size is normal. Mediastinum is unremarkable. Lung foley are hyperaerated with apical lucency and show some linear density in the mid right lung field which may reflect atelectasis or scarring. No acute bony abn ormalities are seen. Impression: Hyperaerated lung foley. Linear density at the mid right lung field which may reflect atelectasis or scarring. VTE Prophylaxis Ordered VTE Prophylaxis Devices: No VTE Pharmacological Prophylaxi: Yes Assessment/Plan Assessment/Plan A/P: Shortness of breath - COPD exacerbation, inhalers, steroids improving Likely end-stage chronic obstructive pulmonary disease - will have outpatient pulm f/u. A noncontrast CT chest to assess for bullous lung disease once COVID is ruled out and recommend alpha-1 antitrypsin level as an outpatient. Abnormal chest x-ray with suspected bullous lung disease and severe emphysema - no clinical pneumonia. Needs PFTs as an outpatient. Hypoxia - likely from COPD exacerbation Anxiety - likely related to COPD. try buspar FEN - General diet PPX - lovenox FULL CODE Dispo - inpatient Justifications for Admission Other Justification ANNE HOOVER MD Dec 03, 2019 07:47
[2019-12-03] MEDS ORDERED: BUDESONIDE 0.5 MG/2 ML NEBU. NEB SCH (08:00)
[2019-12-03] MEDS: methylPREDNISolone SOD SUCC PF 40 MG/ML VIAL. IV SCH ×2 (08:23→13:10)
[2019-12-03] MEDS ORDERED: PRED20TA PO (09:26)
--- NOTE | 2019-12-03 09:32 | PDOC3 ---
Discharge Summary Visit Information Date of Admission: Dec 03, 2019 Date of Discharge: Dec 03, 2019 Admitting Diagnosis: COPD exacerbation Final Diagnosis Problems Medical Problems: (1) COPD exacerbation Status: Acute Brief Hospital Course Allergies Allergies Coded Allergies Type Severity Reaction Last Updated Verified No Known Drug Allergies 09/23/14 No Vital Signs Vital Signs Date Time Temp Pulse Resp B/P (MAP) Pulse Ox O2 Delivery O2 Flow Rate FiO2 12/03/19 07:47 97 Room Air 12/03/19 07:00 97.8 90 18 124/80 (95) 97.8 12/02/19 23:36 3.0 Lab Results Laboratory Tests Test 12/03/19 00:01 12/03/19 00:05 12/03/19 06:50 White Blood Count 8.7 x10^3/uL (4.0-11.0) Red Blood Count 4.14 x10^6/uL (4.30-5.70) Hemoglobin 14.3 g/dL (13.0-17.5) Hematocrit 41.4 % (39.0-53.0) Mean Corpuscular Volume 100 fL (79-100) Mean Corpuscular Hemoglobin 35 pg (25-35) Mean Corpuscular Hemoglobin Concent 35 g/dL (31-37) Red Cell Distribution Width 13.7 % (11.5-14.5) Platelet Count 196 x10^3/uL (140-400) Neutrophils (%) (Auto) 56 % (31-73) Lymphocytes (%) (Auto) 28 % (24-48) Monocytes (%) (Auto) 10 % (0-9) Eosinophils (%) (Auto) 5 % (0-3) Basophils (%) (Auto) 1 % (0-3) Neutrophils # (Auto) 4.9 x10^3/uL (1.8-7.7) Lymphocytes # (Auto) 2.4 x10^3/uL (1.0-4.8) Monocytes # (Auto) 0.9 x10^3/uL (0.0-1.1) Eosinophils # (Auto) 0.4 x10^3/uL (0.0-0.7) Basophils # (Auto) 0.1 x10^3/uL (0.0-0.2) Sodium Level 142 mmol/L (136-145) Potassium Level 4.2 mmol/L (3.5-5.1) Chloride Level 106 mmol/L (98-107) Carbon Dioxide Level 32 mmol/L (21-32) Anion Gap 4 (6-14) Blood Urea Nitrogen 15 mg/dL (8-26) Creatinine 1.1 mg/dL (0.7-1.3) Estimated GFR (Cockcroft-Gault) 69.5 BUN/Creatinine Ratio 14 (6-20) Glucose Level 95 mg/dL (70-99) Calcium Level 8.9 mg/dL (8.5-10.1) Total Bilirubin 0.1 mg/dL (0.2-1.0) Aspartate Amino Transf (AST/SGOT) 12 U/L (15-37) Alanine Aminotransferase (ALT/SGPT) 19 U/L (16-63) Alkaline Phosphatase 105 U/L (46-116) Troponin I Quantitative < 0.017 ng/mL (0.000-0.055) < 0.017 ng/mL (0.000-0.055) Total Protein 6.6 g/dL (6.4-8.2) Albumin 4.0 g/dL (3.4-5.0) Albumin/Globulin Ratio 1.5 (1.0-1.7) O2 Saturation 93 % (92-99) Arterial Blood pH 7.40 (7.35-7.45) Arterial Blood pCO2 at Patient Temp 42 mmHg (35-46) Arterial Blood pO2 at Patient Temp 67 mmHg (75-108) Arterial Blood HCO3 26 mmol/L (21-28) Arterial Blood Base Excess 1 mmol/L (-3-3) FiO2 21 Laboratory Tests Test 12/03/19 00:01 12/03/19 00:05 12/03/19 06:50 White Blood Count 8.7 x10^3/uL (4.0-11.0) Red Blood Count 4.14 x10^6/uL (4.30-5.70) Hemoglobin 14.3 g/dL (13.0-17.5) Hematocrit 41.4 % (39.0-53.0) Mean Corpuscular Volume 100 fL (79-100) Mean Corpuscular Hemoglobin 35 pg (25-35) Mean Corpuscular Hemoglobin Concent 35 g/dL (31-37) Red Cell Distribution Width 13.7 % (11.5-14.5) Platelet Count 196 x10^3/uL (140-400) Neutrophils (%) (Auto) 56 % (31-73) Lymphocytes (%) (Auto) 28 % (24-48) Monocytes (%) (Auto) 10 % (0-9) Eosinophils (%) (Auto) 5 % (0-3) Basophils (%) (Auto) 1 % (0-3) Neutrophils # (Auto) 4.9 x10^3/uL (1.8-7.7) Lymphocytes # (Auto) 2.4 x10^3/uL (1.0-4.8) Monocytes # (Auto) 0.9 x10^3/uL (0.0-1.1) Eosinophils # (Auto) 0.4 x10^3/uL (0.0-0.7) Basophils # (Auto) 0.1 x10^3/uL (0.0-0.2) Sodium Level 142 mmol/L (136-145) Potassium Level 4.2 mmol/L (3.5-5.1) Chloride Level 106 mmol/L (98-107) Carbon Dioxide Level 32 mmol/L (21-32) Anion Gap 4 (6-14) Blood Urea Nitrogen 15 mg/dL (8-26) Creatinine 1.1 mg/dL (0.7-1.3) Estimated GFR (Cockcroft-Gault) 69.5 BUN/Creatinine Ratio 14 (6-20) Glucose Level 95 mg/dL (70-99) Calcium Level 8.9 mg/dL (8.5-10.1) Total Bilirubin 0.1 mg/dL (0.2-1.0) Aspartate Amino Transf (AST/SGOT) 12 U/L (15-37) Alanine Aminotransferase (ALT/SGPT) 19 U/L (16-63) Alkaline Phosphatase 105 U/L (46-116) Troponin I Quantitative < 0.017 ng/mL (0.000-0.055) < 0.017 ng/mL (0.000-0.055) Total Protein 6.6 g/dL (6.4-8.2) Albumin 4.0 g/dL (3.4-5.0) Albumin/Globulin Ratio 1.5 (1.0-1.7) O2 Saturation 93 % (92-99) Arterial Blood pH 7.40 (7.35-7.45) Arterial Blood pCO2 at Patient Temp 42 mmHg (35-46) Arterial Blood pO2 at Patient Temp 67 mmHg (75-108) Arterial Blood HCO3 26 mmol/L (21-28) Arterial Blood Base Excess 1 mmol/L (-3-3) FiO2 21 Brief Hospital Course Mr Williamson is a 54-year-old male who smoked for 37 years with PMHx nephrolithiasis, spontaneous pneumothorax. COPD who comes to ED c/o shortness of breath. He has chronic exertional dyspnea since August. He has moved recently from [place] 1 month ago and has settled in [place] He quit tobacco 5 weeks ago. Patient states he has had progressive shortness of breath for the past couple of days. Notes a dry cough. States this feels similar to previous COPD exacerbations. Has been trying his inhaler at home with minimal relief. States he is from [place] and has not established with a technical operations manager or primary care doctor. States he moved here several weeks ago. Denies chest pain. States he last smoked 8 weeks ago. Notes he has been tested multiple times for coronaviru s in the past 3 months and they have all been negative. Denies syncope. Denies BiPAP requirement at home. Denies any history of ventilator requirement. Denies recent antibiotics or steroids. No other complaints. EKG consistent with sinus tachycardia. Ventricular rate of 104 bpm. [place] normal. Bilateral atrial margin noted. No acute ST segment elevation appreciated. Admitted 11/07-11/09 for similar. His COVID 19 returned negative and after 2 sessions of nebulizers and IV steroids he transitioned to PO prednisone, singulair, and nebulizer kit and pulmicort on discharge with outpatient pulm f/u. After steroids and aggressive nebulizers already feeling a bit improved. Placed on prednisone taper for 5 days. Problem list: Shortness of breath - COPD exacerbation, inhalers, steroids improving Likely end-stage chronic obstructive pulmonary disease - will have outpatient pulm f/u. A noncontrast CT chest to assess for bullous lung disease once COVID is ruled out and recommend alpha-1 antitrypsin level as an outpatient. Has pulm f/u in 9 days Abnormal chest x-ray with suspected bullous lung disease and severe emphysema - no clinical pneumonia. Needs PFTs as an outpatient. Hypoxia - likely from COPD exacerbation Anxiety - likely related to COPD. try buspar Greater than 135 minutes spent on same day admission and d/c Discharge Information Condition at Discharge: Improved Follow Up: Weeks Disposition/Orders: D/C to Home Scheduled Ipratropium/Albuterol Sulfate (Duoneb 0.5-3(2.5) Mg/3 Ml) 3 Ml Ampul.neb, 3 ML NEB QID for COPD for 30 Days, #120 Ref 5 Prescribed by: ANNE HOOVER MD on 11/08/191600 Last Action: Reviewed on 12/03/19431 by MACK ZIEGLER Montelukast Sodium (Montelukast Sodium Tablet ) 10 Mg Tablet, 10 MG PO HS for FOR ASTHMA for 90 Days, #90 Ref 3 Prescribed by: ANNE HOOVER MD on 11/08/191600 Last Action: Continued on 12/03/19 0745 by ANNE HOOVER MD Prednisone (Prednisone) 20 Mg Tablet, 1 TAB PO DAILY for COPD for 5 Days, #5 Prescribed by: ANNE HOOVER MD on 12/03/19 09 Scheduled PRN Buspirone Hcl (Buspirone Hcl) 5 Mg Tablet, 1 TAB PO PRN TID PRN for ANXIETY / AGITATION for 10 Days, #30 Ref 5 Prescribed by: ANNE HOOVER MD on 11/08/191600 Last Action: Continued on 12/03/1945 by ANNE HOOVER MD Justicifation of Admission Dx: Justifications for Admission: Justification of Admission Dx: Yes ANNE HOOVER MD Dec 03, 2019 09:32
[2019-12-03 10:57] VITALS: BP 106/69
--- NOTE | 2019-12-03 13:38 | NUR ---
SW following. Spoke with RN and reviewed chart. Pt from home. Pt currently room air, IV steroids, regular diet. Pt self-pay and [facility] is following. Spoke with patient who stated he met with [employer] today and that they helped him apply for disability. Pt stated no concerns about returning home at discharge. Pt to discharge home today on oral medications, self-care. No further SW needs identified at this time.
[2019-12-03] MEDS ORDERED: FLU VACC QS 2020-21(6MOS+)/PF 0.5 ML SYRINGE. VAX IM ONE (14:30)
--- NOTE | 2019-12-03 14:45 | NUR ---
Discharge Note: PT DISCHARGED HOME WITH SELF CARE. PT LEFT FACILITY VIA PRIVATE VEHICLE WITH MOM AT 1440. PT STABLE AND ALERT UPON DISCHARGE. PT PIV REMOVED FROM L AC WITHOUT COMPLICATIONS, BANDAGE APPLIED. PT EDUCATED ABOUT DISCHARGE INSTRUCTIONS, DISCHARGE MEDICATIONS, AND FOLLOW-UP CARE. PT GIVEN FLU VACCINE PRIOR TO DISCHARGE. PT VOICED NO CONCERNS AT THIS TIME. PT LEFT WITH ALL PERSONAL BELONGINGS. JOSE PAULINO Discharge instructions and discharge home medications reviewed with Patient and a copy given. All questions have been answered and understanding verbalized.
--- NOTE | 2019-12-03 20:03 | EKG ---
[facility] [address] [place] [address] Test Date: 2019-12-02 Test Time: 23:35:53 Pat Name: JOSE PAULINO Department: Room: [facility] Gender: M Chief Scientific Officer: : 1965 Requested By: MICHELLE BLAS Order Number: [id number] Reading MD: Wero Gutierrez Measurements Intervals [place] Rate: 102 P: 78 NC: 146 QRS: 64 QRSD: 86 T: 61 QT: 358 QTc: 471 Interpretive Statements SINUS TACHYCARDIA BIATRIAL ENLARGEMENT ABNORMAL ECG Electronically Signed On 12-05-2019 12:30:34 CDT by Wero Gutierrez
[2019-12-03] MEDS ORDERED: MONTELUKAST SODIUM 10 MG TABLET. PO SCH (21:00)
== END 2019-12-03 14:40 | disposition home or self-care (01) ==
LOC: ER 23:26 → 5 NORTH 12-03 01:22 → INTOOBSV 12-03 04:45 → 5 NORTH 12-03 04:45
PROVIDERS: ADMIT Internal Medicine; ATTEND Internal Medicine
DX: J44.1 Chronic obstructive pulmonary disease with (acute) exacerbation (principal); R09.02 Hypoxemia; F41.9 Anxiety disorder, unspecified; R93.89 Abnormal findings on diagnostic imaging of other specified body structures; Z87.442 Personal history of urinary calculi; Z87.891 Personal history of nicotine dependence; Z23 Encounter for immunization
CPT/HCPCS: 36415; 36600; 71045; 80053; 82805; 84484; 85025; 90471; 90686; 93005; 94640; 94660; 94760; 96374; 96376; 99285; G0378; J2920; G0379; J7626

== ENCOUNTER → 2020-08-18 | Outpatient (CLI) | payer MEDICAID ==
[2020-01-10 02:11] VITALS: BP 149/63
--- NOTE | 2020-08-18 17:13 | KCIC ---
INDICATION: Reason: COPD WITH ACUTE EXACERBATION, FORMER SMOKER / Spl. Instructions: / History: COMPARISON: January 09, 2020 FINDINGS: 2 view of chest obtained. Hyperexpansion with disorganized pulmonary markings bilaterally. opacity in the left perihilar region . Cardiac silhouette unremarkable. Degenerative changes of the spine. IMPRESSION: * Focal opacity within the left lung which could be secondary to infectious etiology but would obtai n a follow-up to ensure that this appropriately decreases to exclude a persistent lung mass. * Disorganized pulmonary markings bilaterally with hyperexpansion which can be seen with emphysema. Electronically signed by: Adrian Hilario MD (08/18/2020 5:10 PM) [id number]
== END ==
LOC: KCIC 14:02
PROVIDERS: ATTEND Internal Medicine Pulmonary Disease
DX: J44.1 Chronic obstructive pulmonary disease with (acute) exacerbation (principal); Z87.891 Personal history of nicotine dependence
CPT/HCPCS: 71046

== ENCOUNTER 2020-09-24 23:24 | Emergency (ER) | payer MEDICAID ==
[~2020-09-24] VITALS: Ht 165.1 cm; Wt 53.0 kg
--- NOTE | 2020-09-24 23:34 | PHYS DOC ---
Past Medical History Past Medical History: COPD, Kidney Stone Additional Past Medical Histor: pneumothorax Past Surgical History: No Surgical History, Other Additional Past Surgical Histo: "LEFT LUNG COLLAPSED" Smoking Status: Former Smoker Alcohol Use: Rarely Drug Use: None General Adult EDM: Chief Complaint: SHORTNESS OF BREATH HPI: HPI: Patient is a 55 year old male with past medical history of COPD presents with a chief complaint of shortness of breath. Patient is on 4 L nasal cannula at all times. Patient states tonight shortness of breath suddenly became worse. He states over the last several days he has had it a cough with some intermittent clear sputum production. He denies any fevers or chills. Patient called 911 due to his difficulty breathing and upon EMS arrival patient was found to have oxygen saturations in the 60s on 4 L. EMS arrived while patient was completing his albuterol treatment. EMS treated patient with 125 of Solu-Medrol. Post treatment patients breathing and improved. On arrival to ER patient on 6 L nasal cannula and had an oxygen saturation 99%. Patient denies any fever chills or chest pain. Patient is not vaccinated against Covid. Review of Systems: Review of Systems: Review of systems: Constitutional symptoms- No fever, no chills. Eyes- No Discharge, No Visual Loss Respiratory symptoms- Positive shortness of breath, Positive wheezing, Positive Dyspnea on Exertion Cardiovascular Systems; No chest pain, No Palpitations, No syncope Gastrointestinal symptoms: NO abdominal pain, no nausea, no vomiting or diarrhea. Genitourinary symptoms: No dysuria. Musculoskeletal symptoms: No back pain No extremity pain. NEUROLOGICAL Symptoms: No headache, no generalized weakness; No focal Weakness Skin: No rash. Heart Score: C/O Chest Pain: N/A Risk Factors: Risk Factors: DM, Current or recent (<one month) smoker, HTN, HLP, family history of CAD, obesity. Risk Scores: Score 0 - 3: 2.5% MACE over next 6 weeks - Discharge Home Score 4 - 6: 20.3% MACE over next 6 weeks - Admit for Clinical Observation Score 7 - 10: 72.7% MACE over next 6 weeks - Early Invasive Strategies Allergies: Allergies: Allergies Coded Allergies Type Severity Reaction Last Updated Verified No Known Drug Allergies 09/23/14 No Physical Exam: PE: General: alert, no acute distress. Skin: warm, dry and intact, no erythema, no rash. HENT: bilateral external ears normal, oropharynx moist, nose normal. Head:: Normocephalic, atraumatic. Neck: Trachea midline. Eyes: EOMI, Normal conjunctiva, No drainage CARDIOVASCULAR: Tachycardic RESPIRATORY: Decreased breath sound no acute distress Back: Full range of motion. MUSCULOSKELETAL: Full range of motion of bilateral upper and lower extremities. GASTROINTESTINAL: Abdomen soft without rebound or guarding. NEUROLOGICAL: Alert and noted to person, place and time. No neurological deficits observed Psychiatric: Cooperative. Normal judgment EKG: EKG: [] Performed at 2331 Rate [address] elevation No ST depression No acute UT Radiology/Procedures: Radiology/Procedures: [] Impression: XR CHEST 1V INDICATION: Reason: Shortness of breath / Spl. Instructions: / History: . COMPARISON STUDY: 08/18/2020. FINDINGS: Lungs: Hyperexpanded lung volume. No pulmonary mass or consolidation. The tracheobronchial tree and hilar structures are normal. Pleura: No pleural effusion or pneumothorax. Heart and Mediastinum: The cardiomediastinal silhouette is normal. The great vessels of the thorax are normal. IMPRESSION: No consolidation. Course & Med Decision Making: Course & Med Decision Making Pertinent Labs and Imaging studies reviewed. (See chart for details) [] Patient was evaluated for chief complaint. Work-up consisted of laboratory analysis radiologic imaging. Results reviewed and discussed with patient. Treatment prior to arrival included Solu-Medrol by EMS. Patient received a DuoNeb. Chest x-ray with no focal abnormalities. Patient's oxygen saturation 99% on his 4 L. At this time I feel the patient is safe for discharge. Will prescribe patient prednisone and amoxicillin. Patient to follow-up with his primary care physician. Emy Disclaimer: Emy Disclaimer: This electronic medical record was generated, in whole or in part, using a voice recognition dictation system. Departure Departure Impression: Primary Impression: COPD exacerbation Additional Impression: Cough Disposition: 01 HOME / SELF CARE / HOMELESS Condition: STABLE Referrals: NO PCP (PCP) Patient Instructions: Chronic Obstructive Pulmonary Disease Exacerbation Scripts Prednisone (PREDNISONE) 20 Mg Tablet 1 TAB PO UD for 12 Days, #15 TAB Take 2 tabs days 1,2,3 1.5 tabs days 3,4,5 1 tab days 6,7,8 0.5 tab days 9,10,11 Prov: MICHELLE BLAS DO 09/25/20 Amoxicillin (AMOXICILLIN) 500 Mg Tablet 1 TAB PO BID, #20 TAB Prov: MICHELLE BLAS DO 09/25/20 MICHELLE BLAS I DO Sep 24, 2020 23:34
--- NOTE | 2020-09-25 00:02 | RAD ---
XR CHEST 1V INDICATION: Reason: Shortness of breath / Spl. Instructions: / History: . COMPARISON STUDY: 08/18/2020. FINDINGS: Lungs: Hyperexpanded lung volume. No pulmonary mass or consolidation. The tracheobronchial tree and h ilar structures are normal. Pleura: No pleural effusion or pneumothorax. Heart and Mediastinum: The cardiomediastinal silhouette is normal. The great vessels of the thorax ar e normal. IMPRESSION: No consolidation. Electronically signed by: Leo Rodriguez MD (09/24/2020 11:59 PM) [facility] SYSTEMDevyn
[2020-09-25 00:21] LABS: BASO % 0 % (0-3); EOS # 0.9 x10^3/uL (0.0-0.7); EOS % 6 % (0-3); HEMATOCRIT 37.6 % (39.0-53.0); HEMOGLOBIN 12.8 g/dL (13.0-17.5); LYMPH # 1.1 x10^3/uL (1.0-4.8); LYMPH % 8 % (24-48); MEAN CORPUSCULAR HEMOGLOBIN 34 pg (25-35); MEAN CORPUSCULAR HGB CONC 34 g/dL (31-37); MEAN CORPUSCULAR VOLUME 99 fL (79-100); MONO # 0.8 x10^3/uL (0.0-1.1); MONO % 6 % (0-9); NEUT # 11.5 x10^3/uL (1.8-7.7); NEUT % 80 % (31-73); PLATELET COUNT 224 x10^3/uL (140-400); RED BLOOD COUNT 3.78 x10^6/uL (4.30-5.70); RED CELL DISTRIBUTION WIDTH 13.4 % (11.5-14.5); WHITE BLOOD COUNT 14.3 x10^3/uL (4.0-11.0)
[2020-09-25 00:30] LABS: CALCIUM 8.9 mg/dL (8.5-10.1); CREATININE 0.8 mg/dL (0.7-1.3)
[2020-09-25 00:36] LABS: ALBUMIN 3.6 g/dL (3.4-5.0); ALBUMIN/GLOBULIN RATIO 1.1 (1.0-1.7); TOTAL BILIRUBIN 0.3 mg/dL (0.2-1.0); TOTAL PROTEIN 6.9 g/dL (6.4-8.2)
[2020-09-25] MEDS ORDERED: IPRATRPIUM/ALBUTEROL 0.5/2.5MG 3 ML NEBU. NEB ONE (00:45)
[2020-09-25] MEDS ORDERED: methylPREDNISolone SOD SUCC PF 125 MG/2 ML VIAL. IV ONE (00:45)
[2020-09-25] MEDS ORDERED: AMOX500T PO (01:59)
[2020-09-25] MEDS ORDERED: PRED20TA PO (01:59)
[2020-09-25] MEDS ORDERED: GUAI120L35 PO (02:12)
[2020-09-25 02:58] VITALS: BP 113/68
== END 2020-09-25 03:05 | disposition home or self-care (01) ==
LOC: ER 23:24
DX: J44.1 Chronic obstructive pulmonary disease with (acute) exacerbation (principal); Z87.891 Personal history of nicotine dependence; R00.0 Tachycardia, unspecified
CPT/HCPCS: 36415; 71045; 80053; 83880; 84484; 85025; 94640; 99285-25